=== PATIENT | female | born 1955 | race Caucasian/White ===

== ENCOUNTER → 2016-11-03 | Outpatient (CLI) | payer BC ==
[~2016-11-03] MED LIST: ATOR-14 PO; BIOT1CAP3 PO; COLE625T PO; FENO145T26 PO; LEVO25TA PO; NXM/40 PO; TOPI100T20 PO; ZNTT/150 PO
== END | disposition home or self-care (01) ==
LOC: C.PAPS 13:43
PROVIDERS: ATTEND Obstetrics & Gynecology
DX: Z01.419 Encounter for gynecological examination (general) (routine) without abnormal findings (principal)

== ENCOUNTER → 2016-12-01 | Outpatient (CLI) | payer BC ==
[~2016-12-01] MED LIST changes: +SINCALIDE INJ 1.2 MCG in SODIUM CHLORIDE 0.9% 100ML 100 ML IV ONE
--- NOTE | 2016-12-01 12:51 | DIAGNOSTIC IMAGING REPORT ---
NUCLEAR MEDICINE HEPATOBILIARY SCAN WITH EJECTION FRACTION HISTORY: Pain ABDOMINAL PAIN, FLOODS GALLBLADDER COMPARISON: 06/07/2013 TECHNIQUE: Immediately following the intravenous administration of 5.5 mCi Tc-99m Choletec, dynamic anterior abdominal imaging pre/post 1.2 mcg of Kinevac was performed. FINDINGS: Uniform hepatic tracer accumulation is shown. Prompt intrahepatic biliary excretion is seen. The gallbladder, common bile duct, and small bowel are all visualized by 15 minutes. This appearance represents the normal sequence of biliary excretion. The gallbladder ejection fraction following administration of Kinevac was 2 % (normal >35%). IMPRESSION: 1. No evidence for cystic duct obstruction. 2. Gallbladder ejection fraction calculated to be 2 %. This is abnormally low Electronically signed by: Dave Tolliver M.D. 12/01/2016 12:50 PM Dictated Date/Time: 12/01/2016 12:48 PM
== END | disposition home or self-care (01) ==
LOC: C.NUCL 10:17
PROVIDERS: ATTEND Nurse Practitioner Family
DX: R10.9 Unspecified abdominal pain (principal); K82.8 Other specified diseases of gallbladder

== ENCOUNTER → 2017-01-01 | Outpatient (CLI) | payer BC ==
[~2017-01-01] MED LIST changes: +REGADENOSON 0.4 MG/5 ML SYR ONE; -SINCALIDE INJ 1.2 MCG in SODIUM CHLORIDE 0.9% 100ML 100 ML IV ONE
--- NOTE | 2017-01-07 16:48 | MYOCARDIAL PERFUSION SCAN ---
ONE-DAY NUCLEAR MEDICINE TECHNETIUM-99M CARDIOLITE MYOCARDIAL PERFUSION SCAN INDICATION: Chest pain, fatigue. BASELINE EKG: Sinus rhythm, left bundle branch block. STRESS EKG: Resting heart rate was 75, went to 106 with Lexiscan achieving 63% of maximum predicted heart rate. Blood pressure was 144/76. TECHNIQUE: For the stress portion of the imaging 32.1 mCi of technetium-99m was injected at 11:00 a.m. on 01/01/2017. Imaging was performed in multiple projections. At 9:00 a.m. 10.2 mCi of technetium-99m was injected IV, again imaging was performed half an hour later in multiple projections. FINDINGS: Rotating raw images were reviewed in detail. There was a mild inferior gut/liver uptake impacting the inferior imaging border of the heart, more so on the stress than on rest. There was mild lateral breast attenuation. There was no significant extracardiac pathologic uptake. The short axis, vertical long axis, and horizontal long axis images were reviewed in detail. There was a primarily fixed perfusion defect involving the mid anterior, anterior septal and septal yanes as well as the apical septal and anterior wall. Perfusion defect was moderate in severity, moderate in size. There was minimal reversibility with rest. LV function was normal with a calculated EF of 75%. There was paradoxical anteroseptal, septal motion. LV size was normal with an end-diastolic volume of 48 mL. IMPRESSIONS: 1. Moderate primarily fixed anteroseptal perfusion defect most consistent with artifact in the setting of left bundle branch block. Cannot rule out possible LAD distribution infarct with minimal periinfarct ischemia. 2. Normal left ventricular size and function with a calculated EF of 75% with paradoxical septal motion consistent with left bundle branch block. 3. Nondiagnostic Lexiscan EKG due to inability to achieve target heart rate and resting left bundle branch block. MTDD
== END | disposition home or self-care (01) ==
LOC: C.NUCL 09:10
PROVIDERS: ATTEND Nurse Practitioner Family
DX: R07.9 Chest pain, unspecified (principal); R53.83 Other fatigue; Z78.0 Asymptomatic menopausal state

== ENCOUNTER → 2017-01-23 | Outpatient (CLI) | payer BC ==
[~2017-01-23] MED LIST changes: -REGADENOSON 0.4 MG/5 ML SYR ONE
--- NOTE | 2017-01-23 13:34 | MAMMOGRAPHY REPORT ---
BILATERAL DIGITAL SCREENING MAMMOGRAM TOMOSYNTHESIS WITH CAD: 01/23/2017 CLINICAL HISTORY: Routine screening. TECHNIQUE: Breast tomosynthesis in addition to standard 2D mammography was performed. Current study was also evaluated with a Computer Aided Detection (CAD) system. COMPARISON: Comparison is made to exams dated: 01/23/2016 mammogram, 01/16/2015 mammogram, 09/20/2013 m ammogram, 09/16/2012 mammogram, 09/16/2011 mammogram, and 09/11/2010 mammogram - [facility] enter. BREAST COMPOSITION: There are scattered areas of fibroglandular density in both breasts. FINDINGS: No suspicious masses, calcifications, or areas of architectural distortion are noted in ei ther breast. There has been no significant interval change compared to prior exams. Bilateral benign -appearing calcifications are not significantly changed. IMPRESSION: ACR BI-RADS CATEGORY 2: BENIGN There is no mammographic evidence of malignancy. A 1 year screening mammogram is recommended. The pa tient will receive written notification of the results. Approximately 10% of breast cancers are not detected with mammography. A negative mammographic report should not delay biopsy if a clinically suggestive mass is present. Laine Tao M.D. ah/:01/23/2017 12:22:08 Fine Arts Teacher: Graciela HUGHES(R)(M), [facility] letter sent: Normal 1/2 BI-RADS Code: ACR BI-RADS Category 2: Benign
== END | disposition home or self-care (01) ==
LOC: C.MAMM 10:03
PROVIDERS: ATTEND Obstetrics & Gynecology
DX: Z12.31 Encounter for screening mammogram for malignant neoplasm of breast (principal)

== ENCOUNTER 2017-07-06 07:14 | Observation (INO) | payer BC, OTHER ==
[2017-06-02 14:32] VITALS: BMI 24.0
--- NOTE | 2017-06-02 15:16 | PAT Medication Instructions ---
Service Date Jun 02, 2017. Current Home Medication List Aspirin (Aspirin Ec), 81 MG PO QPM Cetirizine (Zyrtec), 10 MG PO PRN Fenofibrate (Tricor), 145 MG PO HS Fish Oil (Boomer-3), 1 CAP PO BID Ibuprofen (Advil), 400 MG PO PRN Omeprazole (Prilosec), 40 MG PO QPM Polyethylene Glycol 3350 (Miralax), 17 GM PO QPM Sennosides-Docusate Sodium (Stool Softener), 3 TAB PO QPM Topiramate (Topamax), 100 MG PO HS [Crestor ], 1 TAB PO QPM Medication Instructions For Your Scheduled Surgery - Hold the following medications 2 weeks prior to surgery: Fish Oil (Boomer-3), 1 CAP PO BID - Hold the following medications 7 days prior to surgery per surgeon's instructions: Aspirin (Aspirin Ec), 81 MG PO QPM - Hold the following medications 24 hours prior to surgery: Fenofibrate (Tricor), 145 MG PO HS - Hold the following medications the morning of surgery: Cetirizine (Zyrtec), 10 MG PO PRN Ibuprofen (Advil), 400 MG PO PRN (otherwise okay to continue per surgeon) - Take the following medications as scheduled the night before surgery: Omeprazole (Prilosec), 40 MG PO QPM Polyethylene Glycol 3350 (Miralax), 17 GM PO QPM Sennosides-Docusate Sodium (Stool Softener), 3 TAB PO QPM Topiramate (Topamax), 100 MG PO HS [Crestor ], 1 TAB PO QPM nothing to eat or drink after midnight If you have any questions please call us at [phone] or [phone] or [phone]
[2017-06-02 16:05] LABS: BASO % 0.6 %; BASO ABS # 0.05 K/uL (0-0.2); EOS % 3.1 %; EOS ABS # 0.25 K/uL (0-0.5); HEMATOCRIT 38.5 % (37-47); IG# 0.02 K/uL (0.00-0.02); LYMPH % 38.4 %; LYMPH ABS # 3.06 K/uL (1.2-3.4); MEAN CORPUSCULAR HEMOGLOBIN 28.7 pg (25-34); MEAN CORPUSCULAR HGB CONC 33.8 g/dl (32-36); MEAN PLATELET VOLUME 8.9 fL (7.4-10.4); MONO % 8.4 %; MONO ABS # 0.67 K/uL (0.11-0.59); NEUT % 49.2 %; NEUT ABS # 3.92 K/uL (1.4-6.5); PLATELET COUNT 408 K/uL (130-400); RED CELL DISTRIBUTION WIDTH CV 13.6 % (11.5-14.5); RED CELL DISTRIBUTION WIDTH SD 42.4 fL (36.4-46.3); WHITE BLOOD COUNT 7.97 K/uL (4.8-10.8)
[2017-06-02 19:23] LABS: CALCIUM 9.4 mg/dl (8.5-10.1); CREATININE 1.03 mg/dl (0.60-1.20); POTASSIUM 4.3 mmol/L (3.5-5.1)
[2017-06-25 16:39] VITALS: BMI 24.0
[~2017-07-06] VITALS: Ht 157.5 cm; Wt 60.1 kg
[2017-07-06] VITALS (9 sets, daily range): BP systolic 107–166; BP diastolic 58–74; PULSE 62–91; TEMP 36.7–37; O2SAT 18–98; Ht 157.5 cm; Wt 60.1 kg
[~2017-07-06 07:14] MED LIST changes: +AMOX500C3 PO; +ASPI81TA28 PO; -ATOR-14 PO; -BIOT1CAP3 PO; +CEFAZOLIN 2000MG IV PUSH 10 ML IV SCH; +CEFAZOLIN 2000MG IV PUSH 15 ML IV SCH; +CETI10TA84 PO; +CLINDAMYCIN IV 900 MG in DEXTROSE 5% 100ML 100 ML IV SCH; -COLE625T PO; +CRS/10 PO; +IBUP-1050 PO; +LACTATED RINGER'S 1000ML 1,000 ML IV SCH; -LEVO25TA PO; -NXM/40 PO; +OMEG10007 PO; +PRLSR20 PO; +SENNTAB23 PO; +VNTHFA/IN INH; -ZNTT/150 PO
[2017-07-06] MEDS ORDERED: CLR10 PO (07:38)
[2017-07-06] MEDS ORDERED: FENTANYL CITRATE INJ 50 MCG/1 ML 2 ML VIAL ONE (08:19)
[2017-07-06] MEDS ORDERED: MIDAZOLAM HCL 1 MG/ML 2ML VIAL ONE (08:19)
--- NOTE | 2017-07-06 08:19 | History & Physical Bridge Note ---
H&P Re-Evaluation Bridge Note: I have examined the patient, reviewed the History & Physical and in the interval since the performance of the History & Physical I have noted the following changes of clinical significance: No changes noted
[2017-07-06] MEDS ORDERED: BUPIVACAINE 0.5 % 5 MG/1 ML MPF 30ML VIAL ONE (08:26)
[2017-07-06] MEDS ORDERED: ATROPINE SULFATE 0.1 MG/ML 5ML SYR IV PRN (09:00)
[2017-07-06] MEDS ORDERED: ONDANSETRON INJ 2 MG/ML 2 ML VIAL IV PRN (09:00)
[2017-07-06] MEDS ORDERED: KETOROLAC TROMETHAMINE 15 MG/ML VIAL IV. PRN (09:00)
[2017-07-06] MEDS ORDERED: ONDANSETRON INJ 2 MG/ML 2 ML VIAL ONE (09:29)
[2017-07-06] MEDS ORDERED: ROCURONIUM BROMIDE 10 MG/ML 5 ML VIAL IV ONE (09:29)
[2017-07-06] MEDS ORDERED: NEOSTIGMINE METHYLSULFATE 5 MG/5 ML SYR ONE (09:29)
[2017-07-06] MEDS ORDERED: GLYCOPYRROLATE INJ 0.2 MG/ML VIAL ONE ×2 (09:29)
[2017-07-06] MEDS ORDERED: LIDOCAINE HCL 2% 2 ML VIAL (20MG/ML) ONE (09:29)
[2017-07-06] MEDS ORDERED: PROPOFOL IV EMULSION 10 MG/ML 20 ML VIAL IV ONE (09:29)
--- NOTE | 2017-07-06 09:35 | [facility] Operative Report ---
Operative Report Operative Date Jul 06, 2017. Pre-Operative Diagnosis biliary colic, pancreatitis Post-Operative Diagnosis same, w/ chronic cholecystitis Procedure(s) Performed lap jose f Surgeon Hubert Mechanical Shovel Operator Surgeon(s) Lopez Shrestha Estimated Blood Loss 10cc Findings adhesions, chronic scar tissue Specimens gb Drains None Anesthesia Type General Complication(s) none Disposition Recovery Room / PACU I attest to the content of the Intraoperative Record and any orders documented therein. Any exceptions are noted below.
[2017-07-06] MEDS ORDERED: HYDROCODONE/ACETAMIN 5/325MG TAB PO PRN ×2 (09:45)
[2017-07-06] MEDS ORDERED: MoRPHine SULFATE 2 MG/ML CARP IV PRN (09:45)
[2017-07-06] MEDS ORDERED: PROMETHAZINE HCL INJ 25 MG in SODIUM CHLORIDE 0.9% 50ML 50 ML IV PRN (09:45)
[2017-07-06] MEDS ORDERED: ALBUTEROL HFA 8 GM INHALER INH PRN (09:45)
[2017-07-06] MEDS ORDERED: MoRPHine SULFATE 4 MG/ML 1 ML CARP\\VIAL IV PRN (09:45)
--- NOTE | 2017-07-06 10:14 | OPERATIVE REPORT ---
DATE OF OPERATION: 07/06/2017 NAME OF OPERATION: 1. Laparoscopic cholecystectomy. 2. Umbilical hernia repair. STAFF SURGEON: Berlin Gaspar MD. TERRITORY SERVICE REPRESENTATIVE: Gaston Shrestha PA-C. ANESTHESIA: General. DESCRIPTION OF PROCEDURE: The patient was brought in the operating room and placed on the operating table in supine position. Her abdomen was prepped and draped in usual fashion. Pneumatic stockings and orogastric tube were placed. The patient's abdomen was prepped and draped in usual fashion using 0.5% plain Marcaine. Incision was made above the umbilicus, carrying dissection down opening the hernia sac. It contained preperitoneal adipose tissue which was excised. A Veress needle was passed and then a pneumoperitoneum produced. An 11 mm port placed at this level and then under visualization, three 5 mm ports were placed, 1 cephalad and 2 laterally. Gallbladder was grasped and retracted. It was aspirated of bile. There were chronic adhesions to the gallbladder indicating chronic cholecystitis. Dissection was carried out at the eleazar hepatis, identifying the cystic duct and cystic artery. These were clipped and transected and the gallbladder dissected away from the liver bed in the usual fashion and the gallbladder placed in an Endobag. After appropriate irrigation and hemostasis, the Endobag was removed through the umbilical site. All ports were then removed. The fascia at the umbilicus closed using interrupted 0 Ethibond suture. Subcutaneous tissue reapproximated using 2-0 plain catgut suture then the skin reapproximated using 5-0 Prolene suture at all incisions. Dressings applied and patient transferred to recovery room in stable condition. My bilingual office assistant helped with prepping, draping, entering the abdominal cavity, exposing the gallbladder and removal of the gallbladder as well as closure of the wounds. I attest to the content of the Intraoperative Record and any orders documented therein. Any exception s are noted below.
[2017-07-06] MEDS: FENTANYL CITRATE INJ 50 MCG/1 ML 2 ML VIAL IV PRN ×4 (10:18→10:53)
[2017-07-06] MEDS ORDERED: IV FLUIDS COMPLETED PRN (10:30)
[2017-07-06] MEDS ORDERED: KETOROLAC TROMETHAMINE 30 MG/ML VIAL ONE (10:37)
--- NOTE | 2017-07-06 11:14 | Anesthesiology Progress Note ---
Anesthesia Post Op Note Date & Time Jul 06, 2017 at 11:14 Vital Signs Pain Intensity: 2 Vital Signs Past 12 Hours Date Time Temp Pulse Resp B/P (MAP) Pulse Ox O2 Delivery O2 Flow Rate FiO2 07/06/17 10:59 36.6 66 16 115/71 (77) 97 Nasal Cannula 3 07/06/17 10:33 72 12 07/06/17 10:33 74 12 95 07/06/17 10:33 72 12 07/06/17 10:33 74 12 95 07/06/17 10:31 119/82 07/06/17 10:31 119/82 07/06/17 10:28 67 9 07/06/17 10:28 68 9 95 07/06/17 10:28 68 9 95 07/06/17 10:28 67 9 07/06/17 10:26 129/76 07/06/17 10:26 129/76 07/06/17 10:23 73 17 07/06/17 10:23 73 17 07/06/17 10:23 73 17 94 07/06/17 10:23 73 17 94 07/06/17 10:21 108/71 07/06/17 10:21 108/71 07/06/17 10:18 73 17 07/06/17 10:18 73 17 93 07/06/17 10:18 73 17 07/06/17 10:18 73 17 93 07/06/17 10:16 126/76 07/06/17 10:16 126/76 07/06/17 10:13 77 21 07/06/17 10:13 77 21 91 07/06/17 10:13 77 21 91 07/06/17 10:13 77 21 07/06/17 10:11 118/59 07/06/17 10:11 118/59 07/06/17 10:09 127/71 07/06/17 10:09 127/71 07/06/17 10:08 86 23 84 07/06/17 10:08 86 23 07/06/17 10:08 36.4 83 20 127/71 93 Oxymask 10 07/06/17 10:08 86 23 84 07/06/17 10:08 86 23 07/06/17 07:41 37 91 18 166/71 (102) 18 Room Air Notes Mental Status: alert / awake / arousable, participated in evaluation Pt Amnestic to Procedure: Yes Nausea / Vomiting: adequately controlled Pain: adequately controlled Airway Patency, RR, SpO2: stable & adequate BP & HR: stable & adequate Hydration State: stable & adequate Anesthetic Complications: no major complications apparent
[2017-07-06] MEDS ORDERED: LACTATED RINGER'S 1000ML 1,000 ML IV SCH (12:00)
--- NOTE | 2017-07-06 13:25 | Medical Consult ---
History General Date of Service: Jul 06, 2017. Stated Complaint: Biliary Colic, Biliary Dyskinesia HPI The patient is a 62 year old female who presents to [facility] with complaints of Biliary Colic, Biliary Dyskinesia. The patient's primary care provider is Najma Nunez. This patient has been in generally good health, only taking TriCor and fish oil Claritin senna and omeprazole. She is resting comfortably having some minor diaphragmatic pain from the laparoscopic procedure and she was served a regular lunch per surgery's recommendations Review of Systems ROS: well nourished well developed No double vision blurry vision No problems with speech or swallowing No palpitations, chest pain or pressure No Wheezing or breathing issues Minor upper quadrant abdominal pain but no nausea vomiting diarrhea No burning urine urine frequency or changes in color No focal joint pain or muscle pain No skin rashes or oral lesions No unusual bruising or bleeding No focused back pain or numbness or loss of strength No changes in memory or confusion Social History Hx Tobacco Use In Past Year?: No Smoking Status: Never Smoker Marital status: Occupational Status: employed History of MDRO History of MDRO: No Allergies Coded Allergies: Cephalexin (Verified Allergy, Intermediate, RASH GI UPSET, 07/06/17) Metronidazole (Verified Allergy, Intermediate, RASH, 07/06/17) Sulfa Antibiotics (Verified Allergy, Intermediate, SEPTRA-RASH, 07/06/17) Sassafras Oil (Verified Allergy, Unknown, SASSAFRAS-RASH, 06/25/17) Meperidine (Verified Adverse Reaction, Intermediate, NAUSEA AND VOMITING, 07/06/17) Current Medications Reported Home Medications Medications Dose Route/Sig Max Daily Dose Days Date Category Dose Instructions Claritin (Loratadine) 10 Mg Tab 10 Mg PO DAILY PRN 07/06/17 Reported Crestor (Rosuvastatin Calcium) 10 Mg Tab 10 Mg PO QPM 06/25/17 Reported Ventolin Hfa (Albuterol) 200 Puffs/08309 Mcg Aers 2 Puffs INH Q6H PRN 06/25/17 Reported Advil (Ibuprofen) 200 Mg Tab 400 Mg PO PRN 06/02/17 Reported STOPPED FOR THE PROCEDURE Stool Softener (Sennosides-Docusate Sodium) 1 Tab Tab 3 Tab PO QPM 06/02/17 Reported Prilosec (Omeprazole) 20 Mg Capcr 40 Mg PO QPM 06/02/17 Reported [place]-3 (Fish Oil) 1 Ea Cap 1 Cap PO BID 06/02/17 Reported STOPPED FOR PROCEDURE Aspirin Ec (Aspirin) 81 Mg Tab 81 Mg PO QPM 06/02/17 Reported STOPPED FOR PROCEDURE Tricor (Fenofibrate) 145 Mg Tab 145 Mg PO HS 04/15/13 Reported Topamax (Topiramate) 100 Mg Tab 100 Mg PO HS 04/15/13 Reported Physical Physical Exam Vital Signs: Date Time Temp Pulse Resp B/P (MAP) Pulse Ox O2 Delivery O2 Flow Rate FiO2 07/06/17 12:20 64 17 125/74 (91) 98 Nasal Cannula 4.0 07/06/17 11:50 65 16 107/71 (83) 92 Nasal Cannula 2.0 07/06/17 11:16 105/67 07/06/17 11:14 63 15 07/06/17 11:14 62 15 97 07/06/17 11:11 114/64 07/06/17 11:09 62 15 97 07/06/17 11:09 62 15 07/06/17 11:06 114/71 07/06/17 11:04 62 11 97 07/06/17 11:04 62 11 07/06/17 11:01 115/71 07/06/17 10:59 58 12 07/06/17 10:59 58 12 96 07/06/17 10:59 36.6 66 16 115/71 (77) 97 Nasal Cannula 3 07/06/17 10:56 115/69 07/06/17 10:54 62 10 94 07/06/17 10:54 63 10 07/06/17 10:51 109/72 07/06/17 10:49 67 16 07/06/17 10:49 62 16 96 07/06/17 10:46 98/72 07/06/17 10:44 71 14 98 07/06/17 10:44 70 14 07/06/17 10:41 130/68 07/06/17 10:39 78 17 96 07/06/17 10:39 78 17 07/06/17 10:36 121/76 07/06/17 10:34 60 11 95 07/06/17 10:34 60 11 07/06/17 10:33 72 12 07/06/17 10:33 74 12 95 07/06/17 10:33 72 12 07/06/17 10:33 74 12 95 07/06/17 10:31 119/82 07/06/17 10:31 119/82 07/06/17 10:28 67 9 18 10:28 68 9 95 07/06/17 10:28 68 9 95 07/06/17 10:28 67 9 07/06/17 10:26 129/76 07/06/17 10:26 129/76 07/06/17 10:23 73 17 07/06/17 10:23 73 17 07/06/17 10:23 73 17 94 07/06/17 10:23 73 17 94 07/06/17 10:21 108/71 07/06/17 10:21 108/71 07/06/17 10:18 73 17 07/06/17 10:18 73 17 93 07/06/17 10:18 73 17 07/06/17 10:18 73 17 93 07/06/17 10:16 126/76 07/06/17 10:16 126/76 07/06/17 10:13 77 21 07/06/17 10:13 77 21 91 07/06/17 10:13 77 21 91 07/06/17 10:13 77 21 07/06/17 10:11 118/59 07/06/17 10:11 118/59 07/06/17 10:09 127/71 07/06/17 10:09 127/71 07/06/17 10:08 86 23 84 07/06/17 10:08 86 23 07/06/17 10:08 36.4 83 20 127/71 93 Oxymask 10 07/06/17 10:08 86 23 84 07/06/17 10:08 86 23 07/06/17 07:41 37 91 18 166/71 (102) 18 Room Air General Appearance: WELL-APPEARING, uncomfortable Head: NORMOCEPHALIC, ATRAUMATIC Eyes: PERRLA, EOMI ENT: NORMAL THROAT EXAM Neck: TRACHEA MIDLINE, NO THYROMEGALY (Ms. B6) Respiratory: BREATH SOUNDS NORMAL, CLEAR TO AUSCULTATION, CLEAR TO PERCUSSION, NO RESPIRATORY DISTRESS Cardiovasular: REGULAR RATE/RHYTHM, NORMAL S1S2 Abdomen: NORMAL BOWEL SOUNDS, NO GUARDING, other Upper Extremities: NO EDEMA, NORMAL ROM Lower Extremities: NO EDEMA, NORMAL ROM Neuro: ALERT, ORIENTED x 3 Psychiatric: NORMAL AFFECT, NO SUICIDAL IDEATION Impression Assessment and Plan 62-year-old female status post upper scopic cholecystectomy and umbilical hernia repair doing well postoperatively There are no acute medical needs at this time the patient may continue her TriCor and omeprazole as well as her senna as an outpatient
[2017-07-06] MEDS ORDERED: KETOROLAC TROMETHAMINE 30 MG/ML VIAL IV. SCH (14:00)
[2017-07-06] MEDS ORDERED: NURSING VERBAL MED ORDER ONE (14:45)
[2017-07-06] MEDS: TRAMADOL HCL 50 MG TAB PO PRN ×3 (17:33→23:45)
[2017-07-06] MEDS ORDERED: ROSUVASTATIN CALCIUM 10 MG TAB PO SCH (21:00)
[2017-07-06] MEDS ORDERED: TOPIRAMATE 100 MG TAB PO SCH (21:00)
[2017-07-06] MEDS ORDERED: ASPIRIN 81 MG ECTAB PO SCH (21:00)
[2017-07-06] MEDS: ONDANSETRON INJ 2 MG/ML 2 ML VIAL IV PRN (23:45)
[2017-07-07] MEDS: TRAMADOL HCL 50 MG TAB PO PRN ×2 (03:51→07:59)
[2017-07-07 04:03] VITALS: BP 122/73; PULSE 68; TEMP 36.7; O2SAT 92
[2017-07-07] MEDS ORDERED: TRAM-10 PO (05:46)
--- NOTE | 2017-07-07 05:48 | Discharge Instructions ---
Discharge Instructions Date of Service Jul 07, 2017. Admission Reason for Admission: Biliary Colic, Biliary Dyskinesia Discharge Discharge Diagnosis / Problem: chronic cholecystitis Discharge Goals Goal(s): Decrease discomfort, Improve function, Improve disease control Activity Recommendations Activity Limitations: as noted below Lifting Limitations: no more than 25 pounds Exercise/Sports Limitations: until after follow-up appointment May Resume Sexual Activity: when tolerated Shower/Bathe: tomorrow Driving or Machine Use: 4-5 days . Instructions / Follow-Up Instructions / Follow-Up SPECIAL CARE INSTRUCTIONS: * Cover incisions and change daily for comfort/drainage. * May use ibuprofen for pain as tolerated. * Expect some swelling and bruising. Call your doctor if: * Temperature above 101 degrees * Pain not relieved by pain medicine ordered * There is increased drainage or redness from any incision * You have any unanswered questions or concerns [phone]. FOLLOW UP VISIT: If not already scheduled, please call the office for a follow-up visit. for next week- some suture removal OFFICE PHONE NUMBER: Dr. Gaspar Office Current Hospital Diet Patient's current hospital diet: Regular Diet Discharge Diet Recommended Diet: Regular Diet Procedures Procedures Performed: Laparoscopic Cholecystectomy, Umbilical Hernia repair Pending Studies Studies pending at discharge: no Medical Emergencies . Who to Call and When: Medical Emergencies: If at any time you feel your situation is an emergency, please call 911 immediately. . Non-Emergent Contact Non-Emergency issues call your: Primary Care Provider, Surgeon . "Provider Documentation" section prepared by Berlin Gaspar. . VTE Core Measure Inpt VTE Proph given/why not?: SCD's
--- NOTE | 2017-07-07 06:14 | DISCHARGE SUMMARY ---
PRINCIPAL DIAGNOSIS: Chronic cholecystitis. PROCEDURES: The patient underwent laparoscopic cholecystectomy. HISTORY OF PRESENT ILLNESS: The patient is a 62-year-old female who has been having upper abdominal symptoms felt to be related to her gallbladder and a history of pancreatitis. She was brought into the hospital on 07/06/2017 where she underwent elective laparoscopic cholecystectomy. She did have evidence of adhesions consistent with chronic inflammation and chronic cholecystitis. She done quite well and was felt stable for discharge home to be followed in the surgical clinic next week.
[2017-07-07 07:04] VITALS: BP 128/73; PULSE 66; TEMP 36.6; O2SAT 92
[2017-07-07] MEDS: ONDANSETRON INJ 2 MG/ML 2 ML VIAL IV PRN (07:59)
[2017-07-07 09:42] VITALS: BP 128/73; PULSE 66; TEMP 36.6; O2SAT 92
--- NOTE | 2017-07-07 11:11 | Anesthesiology Progress Note ---
Anesthesia Post Op Note Date & Time Jul 07, 2017 at 11:10 Vital Signs Vital Signs Past 12 Hours Date Time Temp Pulse Resp B/P (MAP) Pulse Ox O2 Delivery O2 Flow Rate FiO2 07/07/17 09:42 36.6 66 16 92 Room Air 07/07/17 07:04 36.6 66 16 128/73 (91) 92 Room Air 07/07/17 04:03 36.7 68 14 122/73 (89) 92 Room Air 07/06/17 23:40 Room Air Notes Mental Status: alert / awake / arousable, participated in evaluation Pt Amnestic to Procedure: Yes Nausea / Vomiting: adequately controlled Pain: adequately controlled Airway Patency, RR, SpO2: stable & adequate BP & HR: stable & adequate Hydration State: stable & adequate Anesthetic Complications: no major complications apparent
== END 2017-07-07 10:15 | disposition home or self-care (01) ==
LOC: C.ACU 07:14 → C.MSN 09:42 → ENRESERV 10:54
PROVIDERS: ADMIT Surgery; ATTEND Surgery
DX: K80.40 Calculus of bile duct with cholecystitis, unspecified, without obstruction (principal); K82.8 Other specified diseases of gallbladder; K85.90 Acute pancreatitis without necrosis or infection, unspecified; E78.00 Pure hypercholesterolemia, unspecified; K21.9 Gastro-esophageal reflux disease without esophagitis; I38 Endocarditis, valve unspecified; E03.9 Hypothyroidism, unspecified; M19.90 Unspecified osteoarthritis, unspecified site; Z87.440 Personal history of urinary (tract) infections; Z98.51 Tubal ligation status; Z90.721 Acquired absence of ovaries, unilateral; Z83.42 Family history of familial hypercholesterolemia; Z82.49 Family history of ischemic heart disease and other diseases of the circulatory system; Z83.3 Family history of diabetes mellitus; Z80.3 Family history of malignant neoplasm of breast; Z80.41 Family history of malignant neoplasm of ovary; Z79.82 Long term (current) use of aspirin; Z98.1 Arthrodesis status